=== PATIENT | male | born 1965 | race African-American/Black ===

== ENCOUNTER 2017-09-06 10:20 | Emergency (ER) | payer OTHER, MEDICARE ==
--- NOTE | 2017-09-06 11:05 | ER Document Report ---
ED Psych Disorder / Suicide <JOESPH GUPTA - Last Filed: 09/06/17 15:50> - General TRAVEL OUTSIDE OF THE U.[place] IN LAST 30 DAYS: No - HPI Patient complains to provider of: Suicidal ideation, Suicidal plan <TREVER JOHNSON - Last Filed: 09/06/17 15:57> - General Chief Complaint: Suicidal Ideation Stated Complaint: PSYCH EVAL Time Seen by Provider: 09/06/17 10:39 - HPI Notes: Patient presents increasing depression and suicidal ideation. Patient is a plan to overdose with insulin. Attempting some mild overdose of insulin earlier today. Seen by his [facility] psychiatrist this morning. Recommended inpatient hospitalization. They have no psychiatric beds at the local hospital recommended evaluation in our ER. Patient denies all physical complaints (TREVER JOHNSON) - Related Data Allergies/Adverse Reactions: adhesive tape Allergy (Verified 09/06/17 10:22) shellfish derived Allergy (Verified 09/06/17 10:22) Past Medical History - Social History Smoking Status: Never Smoker Chew tobacco use (# tins/day): No Frequency of alcohol use: None Drug Abuse: None Family History: None Patient has suicidal ideation: Yes Patient has homicidal ideation: No Renal/ Medical History: Denies: Hx Peritoneal Dialysis Psychiatric Medical History: Reports: Hx Depression - PTSD <TREVER JOHNSON - Last Filed: 09/06/17 15:57> Review of Systems <JOESPH GUPTA - Last Filed: 09/06/17 15:50> <TREVER JOHNSON - Last Filed: 09/06/17 15:57> - Review of Systems Notes: REVIEW OF SYSTEMS: CONSTITUTIONAL: -fevers, -chills EENT: -eye pain, -difficulty swallowing, -nasal congestion CARDIOVASCULAR: -chest pain, -syncope. RESPIRATORY: -cough, -SOB GASTROINTESTINAL: -abdominal pain, -nausea, -vomiting, -diarrhea GENITOURINARY: -dysuria, -hematuria MUSCULOSKELETAL: -back pain, -neck pain SKIN: -rash or skin lesions. HEMATOLOGIC: -easy bruising or bleeding. LYMPHATIC: -swollen, enlarged glands. NEUROLOGICAL: -altered mental status or loss of consciousness, -headache, - neurologic symptoms PSYCHIATRIC: Suicidal ALL OTHER SYSTEMS REVIEWED AND NEGATIVE. (TREVER JOHNSON) Physical Exam <JOESPH GUPTA - Last Filed: 09/06/17 15:50> <TREVER JOHNSON - Last Filed: 09/06/17 15:57> - Vital signs Vitals: Temp Pulse Resp BP Pulse Ox 98.5 F 71 20 123/77 97 09/06/17 10:29 09/06/17 10:29 09/06/17 10:29 09/06/17 10:29 09/06/17 10:29 - Notes Notes: PHYSICAL EXAMINATION: GENERAL: Well-appearing, well-nourished and in no acute distress. HEAD: Atraumatic, normocephalic. EYES: Pupils equal round and reactive to light, extraocular movements intact, sclera anicteric, conjunctiva are normal. ENT: nares patent, oropharynx clear without exudates. Moist mucous membranes. NECK: Normal range of motion, supple without lymphadenopathy LUNGS: Breath sounds clear to auscultation bilaterally and equal. No wheezes rales or rhonchi. HEART: Regular rate and rhythm without murmurs ABDOMEN: Soft, nontender, normoactive bowel sounds. No guarding, no rebound. No masses appreciated. EXTREMITIES: Normal range of motion, no pitting or edema. No cyanosis. NEUROLOGICAL: Cranial nerves grossly intact. Normal speech, normal gait. Normal sensory and motor exams. PSYCH: Normal mood, normal affect. SKIN: Warm, Dry, normal turgor, no rashes or lesions noted. (TREVER JOHNSON) Course - Laboratory Result Diagrams: 09/06/17 10:58 09/06/17 10:58 <JOESPH GUPTA - Last Filed: 09/06/17 15:50> - Laboratory Result Diagrams: 09/06/17 10:58 09/06/17 10:58 <TREVER JOHNSON - Last Filed: 09/06/17 15:57> - Re-evaluation Re-evalutation: 09/06/17 15:57 Patient [facility]. Patient states he does not see his daughters. Please see psychiatric notes regarding patient. Will be discharged appropriate follow-up at the [facility] tomorrow. Also inpatient stabilization on Monday. Return if anything changes (TREVER JOHNSON) - Vital Signs Vital signs: Temp Pulse Resp BP Pulse Ox 98.5 F 71 20 123/77 97 09/06/17 10:29 09/06/17 10:29 09/06/17 10:29 09/06/17 10:29 09/06/17 10:29 - Laboratory Laboratory results interpreted by me: 09/06/17 09/06/17 09/06/17 10:46 10:58 10:58 WBC 11.5 H MCV 79 L MCH 26.0 L RDW 15.4 H Absolute Neutrophils 8.3 H Glucose 198 H Urine Glucose (UA) 50 H Urine Blood SMALL H Salicylates < 1.0 L Acetaminophen < 10 L Discharge <JOESPH GUPTA - Last Filed: 09/06/17 15:50> <TREVER JOHNSON Linh - Last Filed: 09/06/17 15:57> - Discharge Clinical Impression: Depression Qualifiers: Depression Type: unspecified Qualified Code(s): F32.9 - Major depressive disorder, single episode, unspecified Condition: Stable Additional Instructions: DEPRESSION: Your evaluation reveals that you have mental depression. While symptoms may be vague, they often include disturbance of sleep, fatigue, loss of appetite , and general loss of interest in life. While depression may be a side effect of drugs, or a reaction to a major change in your life, many cases have no known cause. If depression is acute, and related to a major loss in your life, you can expect it to clear completely with time. If you have been depressed a long time , are prone to repeated bouts of depression or low mood, or have been thinking of suicide, get help. Depression can be treated with anti-depressant medication and counselling. Long-term depression will often take a few weeks to clear, even with appropriate medication. Follow-up care is important. SUICIDAL IDEATION: Suicidal ideation is a common medical term for thoughts about suicide, which may be as detailed as a formulated plan, without the suicidal act itself. Although most people who undergo suicidal ideation do not commit suicide, some go on to make suicide attempts. The range of suicidal ideation varies greatly from fleeting to detailed planning, role playing, and unsuccessful attempts. While thoughts about suicide are common, most people do not carry out serious actions to commit suicide. Based upon your evaluation and discussion with you, we do not believe you are currently at risk to act upon your thoughts of suicide. You have agreed to return to the Emergency Department, at any time , if you feel inclined to act upon your suicidal thoughts. FOLLOW-UP CARE: You were seen in the ED for suicidal ideation ( plan without intent), and received a psychiatric evaluation. Our recommendation is for you to follow-up with outpatient therapy at the [facility]. Referrals: KELVIN MCCORMICK NP [Primary Care Provider] - Follow up as needed [facility] [Provider Group] - Follow up in 3-5 days
[2017-09-06 11:28] LABS: ABSOLUTE BASOPHILS # (AUTO) 0.1 10^3/uL (0.0-0.2); ABSOLUTE EOSINOPHILS # (AUTO) 0.2 10^3/uL (0.0-0.6); ABSOLUTE LYMPHOCYTES (AUTO) 2.5 10^3/uL (0.5-4.7); ABSOLUTE MONOCYTES (AUTO) 0.6 10^3/uL (0.1-1.4); ABSOLUTE NEUT (AUTO) 8.3 10^3/uL (1.7-8.2); BASOPHILS % (AUTO) 0.6 % (0-2); EOSINOPHILS % (AUTO) 1.5 % (0-6); HEMATOCRIT 41.9 % (37.9-51.0); HEMOGLOBIN 13.8 g/dL (13.5-17.0); LYMPHOCYTES % (AUTO) 21.5 % (13-45); MEAN CORPUSCULAR HGB CONC 32.9 g/dL (32.0-36.0); MEAN CORPUSCULAR VOLUME 79 fl (80-97); MONOCYTES % (AUTO) 4.9 % (3-13); PLATELET COUNT 156 10^3/uL (150-450); RED CELL DISTRIBUTION WIDTH 15.4 % (11.5-14.0); SEGMENTED NEUTROPHILS % (AUTO) 71.5 % (42-78); TOTAL CELLS COUNTED % (AUTO) 100 %; WHITE BLOOD COUNT 11.5 10^3/uL (4.0-10.5)
[2017-09-06 11:48] LABS: ALANINE AMINOTRANSFERASE 48 U/L (21-72); ALBUMIN 4.1 g/dL (3.5-5.0); ALKALINE PHOSPHATASE 83 U/L (38-126); ANION GAP 10 (5-19); ASPARTATE AMINO TRANSFERASE 23 U/L (17-59); BILIRUBIN,DIRECT 0.1 mg/dL (0.0-0.4); BILIRUBIN,TOTAL 0.2 mg/dL (0.2-1.3); BLOOD UREA NITROGEN 14 mg/dL (7-20); CALCIUM 9.5 mg/dL (8.4-10.2); CARBON DIOXIDE 24 mmol/L (22-30); CHLORIDE 105 mmol/L (98-107); GLUCOSE 198 mg/dL (75-110); POTASSIUM 4.6 mmol/L (3.6-5.0); SODIUM 139.2 mmol/L (137-145); TOTAL PROTEIN 7.2 g/dL (6.3-8.2)
[2017-09-06 11:50] LABS: ACETAMINOPHEN < 10 ug/mL (10-30); ALCOHOL < 10 mg/dL (NONE DETECTED); SALICYLATE < 1.0 mg/dL (2.0-20.0)
[2017-09-06 11:59] LABS: APPEARANCE,URINE CLEAR; BILIRUBIN,URINE NEGATIVE (NEGATIVE); COLOR,URINE YELLOW; GLUCOSE, URINE 50 mg/dL (NEGATIVE); KETONES,URINE NEGATIVE (NEGATIVE); LEUKOCYTE ESTERASE,URINE NEGATIVE (NEGATIVE); NITRITE,URINE NEGATIVE (NEGATIVE); PROTEIN,URINE NEGATIVE (NEGATIVE); URINE SPECIFIC GRAVITY 1.019; UROBILINOGEN,URINE NEGATIVE mg/dL (<2.0)
[2017-09-06 12:13] LABS: URINE AMPHETAMINES SCREEN NEGATIVE; URINE BARBITURATES SCREEN NEGATIVE; URINE BENZODIAZEPINES SCREEN NEGATIVE; URINE COCAINE SCREEN NEGATIVE; URINE MARIJUANA (THC) SCREEN NEGATIVE; URINE METHADONE SCREEN NEGATIVE; URINE PHENCYCLIDINE SCREEN NEGATIVE
--- NOTE | 2017-09-06 12:21 | PSYCHOLOGICAL NOTE ---
Psych Note - Psych Note Psych Note: Reason for consult; suicidal ideation Time of evaluation 11:40 am Final Dispo: 3:30 PM Patient is a 52-year-old male. Patient presents in the ED with suicidal ideation, patient reports he feels "like not being on this planet anymore". Patient reports he was slowly trying to kill himself by not managing his diabetes and taking the wrong amounts of insulin. Patient reports that he was at the psychiatrist's office at the [facility], and she recommended he go to the emergency room. Patient reports that he goes to the [facility] every 3 weeks to treat his PTSD. Patient reports that he lives with his and 3 children, his 2 oldest sons have autism, and require a lot of care. Patient reports he does not do any drugs or alcohol and tries to be a good father to his children. Patient reports that his son reminds him and is a trigger of a friend he lost in the [place]. Patient reports that when he thinks about suicide he starts to think about his family and it stops him because he knows his children need him. Patient reports that he feels guilt because he does not want his to have to take care of their 3 kids by herself. Patient reports he wants to stay alive long enough to walk his daughter down the aisle, his daughter is currently 10 years old. Patient reports he has never been to a psychiatric hospital. Patient reports he has a lot of health issues that also influence his mental health, to include fibromyalgia, back pain, leg pain, and needing to walk with a cane. Patient reports that his physical health issues are related to the time served in the [employer]. Collateral information; patient's information Karli Mukesh phone # [phone]. Gathered by lead case manager Konrad Herrera 09/06/17 12:06 - ED Mental Health Note by KONRAD HERRERA Acct Num: [id number] : 1965 Patient Age: 52 Spoke with patients Layo ([phone]) who reports [facility] were at [facility] [place] when the patient admitted that he had been doing "test runs" by over taking his insulin. Per this is the first she has heard of this, but the patient has yelled out for her before to bring him his sugar pills. reports that they have been for 28 years and that their marriage is more strained than it has ever been. She feels the patient resents her for trying to "find" herself and feels that he can not talk to her. They have 3 kids together, 2 have special needs and require allot of attention. Per patient plays video game to distract him but he is constantly on edge. Patient is a [place] vet with depression, PTSD and multiple health problems. Per the patients mother and sister do have a diagnosis of schizophrenia. Medication recommendations made by [facility] psychiatric provider Dr. Sharee MD includes; None Impression/plan; patient is psychiatrically cleared for discharge. [facility]. Since is present in the ED and is included in discharge planning, patient' s agrees to assist patient with medication administration and coordinating care. Consulted with Dr. Kaiser regarding the management and care of patient.
[2017-09-06 16:08] VITALS: BP 119/84
--- NOTE | 2017-09-06 22:18 | EKG REPORT ---
SEVERITY:- ABNORMAL ECG - SINUS RHYTHM ABNRM R PROG, CONSIDER ASMI OR LEAD PLACEMENT : Confirmed by: Kelvin Bonilla 06-Sep-2017 22:17:57
== END 2017-09-06 16:05 | disposition home or self-care (01) ==
LOC: ER 10:20
DX: F32.9 Major depressive disorder, single episode, unspecified (principal); R41.82 Altered mental status, unspecified; Z91.013 Allergy to seafood
CPT/HCPCS: 36415; 80053; 80307; 81001; 85025; 93005; 93010; 99285

== ENCOUNTER 2019-11-13 18:15 | Emergency (ER) | payer OTHER, MEDICARE ==
--- NOTE | 2019-11-13 18:20 | ER Document Report ---
HPI - HPI Patient complains to provider of: Left ear pain Time Seen by Provider: 11/13/19 18:19 Onset: This morning Onset/Duration: Persistent Quality of pain: Achy Context: 54-year-old male presents emergency department complaints of left ear pain and drainage 3 days. Denies fever vomiting diarrhea. Reports he is not been swimming. He reports his been his been trying to clean the ear out. Denies past medical history of injury to the ear. Associated Symptoms: None Exacerbated by: Denies Relieved by: Denies Similar symptoms previously: No Recently seen / treated by doctor: No Past Medical History - General Information source: Patient - Social History Smoking Status: Unknown if Ever Smoked Cigarette use (# per day): No Frequency of alcohol use: None Drug Abuse: None Lives with: Family Family History: None Patient has suicidal ideation: No Patient has homicidal ideation: No - Past Medical History Cardiac Medical History: Reports: Hx Hypercholesterolemia, Hx Hypertension Endocrine Medical History: Reports: Hx Diabetes Mellitus Type 2 Renal/ Medical History: Denies: Hx Peritoneal Dialysis GI Medical History: Reports: Hx Irritable Bowel Psychiatric Medical History: Reports: Hx Depression - PTSD, Hx Post Traumatic Stress Disorder Surgical Hx: Negative Vertical Provider Document - CONSTITUTIONAL Agree With Documented VS: Yes Exam Limitations: No Limitations General Appearance: WD/WN, No Apparent Distress - INFECTION CONTROL TRAVEL OUTSIDE OF THE [place] IN LAST 30 DAYS: No - HEENT HEENT: Atraumatic, Normocephalic. negative: Conjuctival Injection, Tympanic Membrane Red - Left EAC swollen with discharge noted. Wound culture obtained. Ear wick placed with Cortisporin otic suspension. - NECK Neck: Supple - RESPIRATORY Respiratory: Breath Sounds Normal, No Respiratory Distress - CARDIOVASCULAR Cardiovascular: Regular Rate - GI/ABDOMEN Gastrointestinal: Abdomen Soft, Abdomen Non-Tender - MUSCULOSKELETAL/EXTREMETIES Musculoskeletal/Extremeties: MAEW, FROM - NEURO Level of Consciousness: Awake, Alert, Appropriate Motor/Sensory: No Motor Deficit - DERM Integumentary: Warm, Dry Course - Re-evaluation Re-evalutation: 11/13/19 19:27 Patient with left otitis externa. EAC swollen with discharge noted unable to visualize TM. Ear wick placed Cortisporin otic suspension drops placed. Patient was also prescribed amoxicillin. He was instructed to monitor symptoms monitor his ear return for worsening condition. He verbalized understanding to all instructions. Discharge - Discharge Clinical Impression: Left ear pain, Otitis externa, left Condition: Stable Disposition: HOME, SELF-CARE Instructions: Acetaminophen, Using Ear Drops with a Wick ([facility]), Otitis Externa ([facility]) Additional Instructions: *You have been evaluated for Left ear pain, otitis externa, otitis media *Use ear drops as prescribed--- - Instill 4 drops 3 times daily for seven days *Take amoxicillin as prescribed * [facility] *Return to the emergency department with swelling of the left ear increased pain, fever, concerns Monitor your blood pressure. Your blood pressure was elevated today. This may be because you were anxious, in pain or because you need medication. It is important to follow up with your primary care provider for full evaluation. Prescriptions: Amoxicillin Trihydrate [Amoxil 500 mg Capsule] 500 mg PO TID #30 capsule Forms: Elevated Blood Pressure Referrals: KELVIN MCCORMICK NP [NO LOCAL MD] - Follow up in 1 week
[2019-11-13 18:23] VITALS: BP 175/90
[2019-11-13] MEDS ORDERED: NEOMY SULF/POLYMYX B SULF/HC OTIC SUSP 10 ML AS ONE (18:28)
[2019-11-13] MEDS ORDERED: AMOXICILLIN TRIHYDRATE 500 MG CAPSULE PO ONE (18:28)
[2019-11-13] MEDS ORDERED: ACETAMINOPHEN 325 MG TABLET PO ONE (18:29)
== END 2019-11-13 18:50 | disposition home or self-care (01) ==
LOC: ER 18:15
DX: H60.92 Unspecified otitis externa, left ear (principal); E11.9 Type 2 diabetes mellitus without complications; I10 Essential (primary) hypertension
CPT/HCPCS: 99282; 87205; 87070; 87077; J3490; 87186